=== PATIENT | male | born 1970 | race Caucasian/White ===

== ENCOUNTER 2016-09-07 21:02 | Emergency (ER) | payer OTHER ==
[~2016-09-07] VITALS: Ht 154.9 cm; Wt 59.5 kg
[~2016-09-07 21:02] MED LIST: CIPR500T4 PO; DIPH50TA5 PO; DOXA2TAB PO; HYDR-762 PO; IBUP-1542 PO; OMEP40CA6 PO
[2016-09-07 21:08] VITALS: Ht 154.9 cm; Wt 59.5 kg
[2016-09-07 23:22] LABS: ADD SCAN DIFF NO
[2016-09-07 23:25] LABS: BASOPHILS % 0.4 % (0.0-2.0); EOSINOPHILS # 0.1 10^3/ul (0.0-0.5); EOSINOPHILS % 2.4 % (0.0-7.0); HEMATOCRIT 41.5 % (42.0-52.0); HEMOGLOBIN 13.9 g/dl (14.0-18.0); LYMPHOCYTES # 2.3 10^3/ul (0.8-2.9); LYMPHOCYTES % 45.4 % (15.0-51.0); MEAN CORPUSCULAR HEMOGLOBIN 30.2 pg (29.0-33.0); MEAN CORPUSCULAR HGB CONC 33.5 g/dl (32.0-37.0); MEAN PLATELET VOLUME 9.2 fl (7.4-10.4); MONOCYTE # 0.4 10^3/ul (0.3-0.9); MONOCYTES % 8.1 % (0.0-11.0); NEUTROPHIL # 2.2 10^3/ul (1.6-7.5); NEUTROPHILS % 43.5 % (39.0-77.0); PLATELET COUNT 221 10^3/UL (140-415); RED BLOOD COUNT 4.61 10^6/ul (4.70-6.10); RED CELL DISTRIBUTION WIDTH 12.8 % (11.5-14.5); WHITE BLOOD COUNT 5.1 10^3/ul (4.8-10.8)
--- NOTE | 2016-09-07 23:26 | RADRPT ---
PROCEDURE: CT brain without contrast CLINICAL INDICATION: Left-sided weakness TECHNIQUE: A CT of the brain was performed utilizing axial sections from the skull base through th e vertex without contrast. Sagittal and coronal images were also reformatted. The exam CTDIvol = 44. 81 mGy and DLP = 630.20 mGy-cm. COMPARISON: None available FINDINGS: No acute intracranial hemorrhage is identified. There is no mass effect or midline shift. No extra -axial fluid collection is seen. The ventricles and sulci are within normal limits for size and con figuration. The density of the brain is within normal limits. Ellis-white differentiation is preser valentine. The osseous structures are unremarkable. The mastoid air cells and visualized paranasal sinuses are clear. RPTAT:HJJR IMPRESSION: Unremarkable noncontrast CT of the brain. Physician Nicky Date Time Electronically viewed and signed by Physician Nicky on 09/07/2016 23:26 /
[2016-09-07 23:41] LABS: INR 1.03; PROTIME 13.5 Sec (12.2-14.2); PT RATIO 1.1
[2016-09-07 23:42] LABS: PARTIAL THROMBOPLASTIN TIME 29.3 Sec (25.0-35.0)
[2016-09-07 23:53] LABS: ANION GAP 14 (8-16); BLOOD UREA NITROGEN 19 mg/dl (7-20); CARBON DIOXIDE 28 mmol/L (21-31); CHLORIDE 105 mmol/L (97-110); CREATININE 0.74 mg/dl (0.61-1.24); GLUCOSE 97 mg/dl (70-220); POTASSIUM 4.1 mmol/L (3.5-5.1); SODIUM 143 mmol/L (135-144)
[2016-09-08 00:05] LABS: TROPONIN-I < 0.012 ng/ml (0.00-0.12)
--- NOTE | 2016-09-08 00:10 | RADRPT ---
PROCEDURE: XR Chest. CLINICAL INDICATION: chest pain TECHNIQUE: Single frontal view of the chest was obtained COMPARISON: None FINDINGS: The heart and mediastinum are within normal limits. The lungs are clear. There is no pleural effusion or pneumothorax. RPTAT: AA IMPRESSION: No acute disease. .Cooper Aburto MD, Date Time Electronically viewed and signed by .Cooper Aburto MD, on 09/08/2016 00:10 .S/
--- NOTE | 2016-09-08 00:22 | ERD ---
ER Documentation Chief Complaint Date/Time DATE: 09/08/16 TIME: 00:19 Chief Complaint LEFT ARM, HEAD/FACIAL, CHEST PAIN FOR PAST 6 MONTHS, N/V, DIZZY. MILD NUMB HPI This is a 46-year-old male who presents to the emergency room for evaluation of body pain for the last 6 months. The patient states that today he was having pain in his left arm and right arm and came to the ER for evaluation. He states that the pain is worse with making a fist. He denies any trauma, denies any numbness or tingling in his extremities and came to the ER for evaluation. ROS All systems reviewed and are negative except as per history of present illness. Medications Home Meds Active Scripts Hydrocodone Bit-Acetaminophen* ([place]*) 10-325 Mg Tablet, 1 TAB PO Q6 Y for PAIN , #7 TAB Prov:PAM CRUZ MD 11/21/14 Reported Medications Ciprofloxacin Hcl* (Ciprofloxacin Hcl*) 500 Mg Tablet, 500 MG PO BID, TAB 11/21/14 Doxazosin Mesylate* (Doxazosin Mesylate*) 2 Mg Tablet, 2 MG PO HS, TAB 11/21/14 Ibuprofen* (Motrin*) 600 Mg Tab, 600 MG PO TID, TAB 11/21/14 Diphenhydramine Hcl* (Diphenhydramine Hcl*) 50 Mg Tablet, 50 MG PO QHS Y for SLEEP, TAB 11/21/14 Omeprazole* (Omeprazole*) 40 Mg Capsule.dr, 40 MG PO DAILY, CAP 11/21/14 Allergies Allergies: Coded Allergies: No Known Allergies (Verified Allergy, Unknown, 11/21/14) PMhx/Soc History of Surgery: Yes (SINUS SX, TESTICULAR SX, HERNIA SX) Anesthesia Reaction: No Hx Neurological Disorder: No Hx Respiratory Disorders: No Hx Cardiac Disorders: Yes (htn, HIGH TRIGLYCERIDES) Hx Psychiatric Problems: No Hx Miscellaneous Medical Probl: No Hx Alcohol Use: No Hx Substance Use: No Hx Tobacco Use: No Smoking Status: Never smoker Physical Exam Vitals Vital Signs Date Time Temp Pulse Resp B/P Pulse Ox O2 Delivery O2 Flow Rate FiO2 09/07/16 21:08 97.0 63 18 118/77 97 Physical Exam INITIAL VITAL SIGNS: Reviewed by me GENERAL: The patient is well developed and appropriate for usual state of health in no apparent distress HEENT: Pupils equal, round, and reactive to light. EOMI. There is no scleral icterus. NECK: C-spine is soft and supple, there is no meningismus. There is no cervical lymphadenopathy. LUNGS: Clear to auscultation bilaterally. There are no rales, wheezes or rhonchi. HEART: Regular rate and rhythm, no murmurs, clicks, rubs or gallops. ABDOMEN: Soft, non-tender, non-distended. There are bowel sounds in all four quadrants. No rebound or guarding. EXTREMITIES: There is no peripheral cyanosis or edema. No focal swelling or erythema. NEUROLOGICAL: The patient moves all four extremities with 5/5 strength. Cranial nerves II - XII are intact. Normal gait. Alert and oriented to person place and time, reflexes intact and symmetric in the bilateral upper and lower extremity SKIN: There is no apparent rash or petechiae. HEME/LYMPHATIC: There is no evidence of excessive bruising or lymphedema. PSYCHIATRIC: The patient does not appear anxious or depressed. Result Diagram: 09/07/16 2305 09/07/16 2305 Results 24 hrs Laboratory Tests Test 09/07/16 23:05 White Blood Count 5.110^3/ul Red Blood Count 4.6110^6/ul Hemoglobin 13.9g/dl Hematocrit 41.5% Mean Corpuscular Volume 90.0fl Mean Corpuscular Hemoglobin 30.2pg Mean Corpuscular Hemoglobin Concent 33.5g/dl Red Cell Distribution Width 12.8% Platelet Count 55937^3/UL Mean Platelet Volume 9.2fl Neutrophils % 43.5% Lymphocytes % 45.4% Monocytes % 8.1% Eosinophils % 2.4% Basophils % 0.4% Nucleated Red Blood Cells % 0.0/100WBC Neutrophils # 2.210^3/ul Lymphocytes # 2.310^3/ul Monocytes # 0.410^3/ul Eosinophils # 0.110^3/ul Basophils # 0.010^3/ul Nucleated Red Blood Cells # 0.010^3/ul Prothrombin Time 13.5Sec Prothrombin Time Ratio 1.1 INR International Normalized Ratio 1.03 Activated Partial Thromboplast Time 29.3Sec Sodium Level 143mmol/L Potassium Level 4.1mmol/L Chloride Level 105mmol/L Carbon Dioxide Level 28mmol/L Anion Gap 14 Blood Urea Nitrogen 19mg/dl Creatinine 0.74mg/dl Glucose Level 97mg/dl Calcium Level 9.0mg/dl Troponin I < 0.012ng/ml Procedures/MDM EKG: #1 Rate/Rhythm: [Normal Sinus Rhythm] QRS, ST, T-waves: [No changes consistent w/ acute ischemia] Impression: [No evidence of ischemia or arrhythmia] EKG: #2 Rate/Rhythm: [Normal Sinus Rhythm] QRS, ST, T-waves: [No changes consistent w/ acute ischemia] Impression: [No evidence of ischemia or arrhythmia early repolarization] Chest X-ray 1V Interpreted by me: Soft Tissue: No acute abnormalities Bones: No acute abnormalities Mediastinum/Cardiac Silhouette/Lungs: [No acute abnormalities] CT brain without: Unremarkable noncontrast CT of the brain. This 46-year-old male presents to the emergency room for evaluation of generalized weakness and body pain for the past 6 months. When I evaluated him he did not have any sign of focal neurological deficit. He was alert and oriented to person place and time with 5 out of 5 strength in upper and lower extremities bilaterally. His reflexes are intact and symmetric bilaterally. CT of the brain was unremarkable. EKGs were obtained and both are unremarkable except for early repolarization. This patient's lab work is also within normal limits. When I reevaluated him he stated that he is not having any numbness or tingling is having no chest pain, no shortness of breath, no dizziness and advised him he can follow-up with his primary care physician to be referred to neurology as an outpatient if he is having generalized weakness. The patient did verbalize understanding and is okay to plan of care. Departure Diagnosis: Primary Impression: Generalized weakness Additional Impressions: Multiple complaints Normocytic anemia Condition: Stable MOYNKECHIJANIE MARS Sep 08, 2016 00:22
[2016-09-08 00:40] VITALS: BP 116/78; PULSE 78; RESP 16
[2016-09-08] MEDS ORDERED: IBUPROFEN 800 MG TAB PO ONE (01:00)
== END 2016-09-08 01:02 | disposition home or self-care (01) ==
LOC: E/R 21:02
DX: R53.1 Weakness (principal); D64.9 Anemia, unspecified; R51 Headache; R42 Dizziness and giddiness; R11.2 Nausea with vomiting, unspecified; R20.0 Anesthesia of skin; M79.601 Pain in right arm; I10 Essential (primary) hypertension
CPT/HCPCS: 36415; 70450; 71010; 80048; 84484; 85025; 85610; 85730; 93005